=== PATIENT | female | born 1970 | race Caucasian/White ===

== ENCOUNTER 2019-09-30 22:51 | Emergency (ER) | payer OTHER ==
[2019-09-30 23:43] LABS: Basophils # (A) 0.1 k/uL (0-0.2); Basophils % (A) 1 %; Eosinophils # (A) 0.1 k/uL (0-0.7); Eosinophils % (A) 2 %; HCT 39.8 % (34.0-46.0); HGB 13.2 gm/dL (11.4-16.0); Lymphocytes # (A) 3.4 k/uL (1.0-4.8); Lymphocytes % (A) 42 %; MCHC 33.2 g/dL (31.0-37.0); MCV 90.3 fL (80.0-100.0); Mean Platelet Volume 7.5; Monocytes # (A) 0.5 k/uL (0-1.0); Monocytes % (A) 6 %; Neutrophils # (A) 3.7 k/uL (1.3-7.7); Neutrophils % (A) 45 %; Platelet Count 257 k/uL (150-450); RDW 13.6 % (11.5-15.5); WBC 8.2 k/uL (3.8-10.6)
[2019-09-30 23:50] LABS: Appearance,Urine Cloudy (Clear); Bacteria,Urine Rare /hpf; Bilirubin,Urine Negative (Negative); Blood,Urine Moderate (Negative); Color,Urine Yellow; Glucose,Urine (UA) Negative (Negative); Hyaline Casts,Urine 1 /lpf (0-2); Ketones,Urine 1+ (Negative); Leukocyte Esterase,Urine Small (Negative); Mucus,Urine Moderate /hpf; Nitrite,Urine Negative (Negative); PH, Urine 5.5 (5.0-8.0); Protein,Urine Trace (Negative); RBC,Urine 3 /hpf (0-5); Specific Gravity,Urine 1.025 (1.001-1.035); Squamous Epithelial Cell,Urine 6 /hpf (0-4); Urobilinogen,Urine <2.0 mg/dL (<2.0); WBC,Urine 4 /hpf (0-5)
[2019-09-30 23:51] LABS: ALT 23 U/L (4-34); AST 33 U/L (14-36); Acetaminophen <10.0 ug/mL; African American GFR (CKD) 85 (>60 ml/min/1.73 sqM); Albumin 4.2 g/dL (3.5-5.0); Alkaline Phosphatase 53 U/L (38-126); Anion Gap 10 mmol/L; Blood Urea Nitrogen 10 mg/dL (7-17); Calcium 9.2 mg/dL (8.4-10.2); Carbon Dioxide 18 mmol/L (22-30); Chloride 117 mmol/L (98-107); Glucose 105 mg/dL (74-99); Non-African American GFR(CKD) 74 (>60 ml/min/1.73 sqM); Potassium 3.9 mmol/L (3.5-5.1); Salicylate <1.0 mg/dL; Sodium 145 mmol/L (137-145); Total Bilirubin 0.2 mg/dL (0.2-1.3); Total Protein 6.9 g/dL (6.3-8.2)
[2019-09-30 23:58] LABS: Amphetamine Screen,Urine Not Detected (NotDetected); Barbiturate Screen,Urine Not Detected (NotDetected); Benzodiazepines Screen,Urine Not Detected (NotDetected); Cocaine Screen,Urine Detected (NotDetected); Methadone Screen, Urine Not Detected (NotDetected); Opiate Screen,Urine Not Detected (NotDetected); Oxycodone Screen, Urine Not Detected (NotDetected); Phencyclidine Screen,Urine Not Detected (NotDetected); Tricyclic Antidepressant,Urine Detected (NotDetected); Urn Cannabinoid Scrn Not Detected (NotDetected)
[2019-10-01 00:02] LABS: Alcohol 166 mg/dL
--- NOTE | 2019-10-01 00:13 | ED ---
General Adult HPI - General Source: patient, EMS Mode of arrival: ambulatory Limitations: no limitations <Cris Fuentes - Last Filed: 10/02/19 02:28> <Elie West - Last Filed: 10/02/19 13:42> - General Chief complaint: Psychiatric Symptoms Stated complaint: Overdose Time Seen by Provider: 09/30/19 22:58 - History of Present Illness Initial comments: Niya is a pleasantly intoxicated 49-year-old female who is brought to the emergency department today by EMS for evaluation of suicidal thoughts and overdose. Patient states that she has a history of bipolar, she is prescribed Seroquel but ran out a few days ago and has been out of her medications. Patient states today she used cocaine, drink alcohol and then took 200 mg of baclofen in an attempt to harm herself. Patient has a history of self-harm be havior. (Cris Fuentes) - Related Data Allergies Allergy/AdvReac Type Severity Reaction Status Date / Time No Known Allergies Allergy Verified 10/01/19 03:46 Review of Systems ROS Other: All systems not noted in ROS Statement are negative. <Cris Fuentes - Last Filed: 10/02/19 02:28> ROS Other: All systems not noted in ROS Statement are negative. <Elie West - Last Filed: 10/02/19 13:42> ROS Statement: Those systems with pertinent positive or pertinent negative responses have been documented in the HPI. General Exam Limitations: no limitations <Cris Fuentes - Last Filed: 10/02/19 02:28> - General Exam Comments Initial Comments: Physical Exam GENERAL: Patient is well-developed and well-nourished. Patient is nontoxic and well-hydrated and is in no distress. HENT: Normocephalic, Atraumatic. EYES: PERRL, EOMI PULMONARY: Unlabored respirations. CARDIOVASCULAR: RRR Warm and well perfused extremities ABDOMEN: Obese, Non-distended SKIN: No rashes or bruising : Deferred NEUROLOGIC: Alert and oriented Slurred speech MUSCULOSKELETAL: Moving all extremities with no apparent injury PSYCHIATRIC: Depressed, suicidal (Cris Fuentes) Course Vital Signs 09/30/19 10/01/19 10/01/19 23:04 00:30 01:00 Temperature 98.2 F Pulse Rate 95 101 H 101 H Respiratory 18 16 18 Rate Blood Pressure 135/80 134/61 134/61 O2 Sat by Pulse 96 92 L 95 Oximetry 10/01/19 10/01/19 10/01/19 02:10 05:00 06:00 Temperature Pulse Rate 96 89 82 Respiratory 16 18 18 Rate Blood Pressure 168/97 184/111 182/86 O2 Sat by Pulse 96 96 94 L Oximetry 10/01/19 10/01/19 10/01/19 07:50 09:39 09:41 Temperature 97.5 F L Pulse Rate 67 Respiratory 18 Rate Blood Pressure 162/81 O2 Sat by Pulse 96 Oximetry 10/01/19 10/01/19 10/01/19 14:47 15:32 22:33 Temperature 97.5 F L 98.1 F Pulse Rate 91 86 89 Respiratory 18 18 18 Rate Blood Pressure 191/90 154/88 164/89 O2 Sat by Pulse 96 99 99 Oximetry 10/02/19 10/02/19 10/02/19 06:56 08:00 09:00 Temperature 98.3 F Pulse Rate 85 93 Respiratory 17 18 18 Rate Blood Pressure 151/74 140/72 O2 Sat by Pulse 96 96 Oximetry 10/02/19 10/02/19 10/02/19 10:00 11:00 12:00 Temperature Pulse Rate 90 Respiratory 18 18 18 Rate Blood Pressure 132/71 O2 Sat by Pulse 96 Oximetry 10/02/19 12:46 Temperature 98.3 F Pulse Rate 90 Respiratory 18 Rate Blood Pressure 132/71 O2 Sat by Pulse 96 Oximetry EKG Findings - EKG Comments: EKG Findings:: An EKG was obtained due to ingestion, EKG was obtained at 2310, r ate is 99 rhythm is sinus there is a normal axis, normal intervals, AK 1:30, QRS 88, QTC is [address] elevations or depressions no evidence of acute ischemia, infarction or arrhythmia. <Cris Fuentes - Last Filed: 10/02/19 02:28> Medical Decision Making - Lab Data Result diagrams: 09/30/19 23:29 09/30/19 23:29 <Cris Fuentes - Last Filed: 10/02/19 02:28> - Lab Data Result diagrams: 09/30/19 23:29 09/30/19 23:29 <Elie West - Last Filed: 10/02/19 13:42> - Medical Decision Making The patient was seen and evaluated history is obtained from the patient and EMS Patient admitted to cocaine use, alcohol intoxication and intentional overdose of baclofen Patient care was discussed with poison control who recommended monitoring for sedation, possible seizures Patient remained awake alert and oriented through her stay in the emergency department. She would have short periods of sleeping with snoring but would wake She was clinically sober at 2 AM and was evaluated by emergency psychiatric services to petition the patient and recommended inpatient admission. Admission is not available here patient will be transferred to an outpatient psychiatric facility. I completed a psychiatric certification as I do agree the patient is a threat to herself with depression and suicidal plan. Patient previously on Seroquel has been noncompliant for a few days. Dose of Seroquel was ordered here patient was also noted be hypertensive with a high heart rate is a dose of metoprolol was ordered. Patient with some nausea and vomiting was treated with Zofran, she is tolerating oral fluids now. Patient will be transferred to outpatient psychiatric facility, at this time pending placement Regular diet ordered 10/01/2019 23:00 She was reevaluated evening she is pending transfer to psychiatric facility. Patient received Ativan throughout the day today. Her normal evening dose of Seroquel was again ordered. (Cris Fuentes) - Lab Data Lab Results 09/30/19 09/30/19 09/30/19 Range/Units 23:29 23:29 23:29 WBC 8.2 (3.8-10.6) k/uL RBC 4.40 (3.80-5.40) m/uL Hgb 13.2 (11.4-16.0) gm/dL Hct 39.8 (34.0-46.0) % MCV 90.3 (80.0-100.0) fL MCH 30.0 (25.0-35.0) pg MCHC 33.2 (31.0-37.0) g/dL RDW 13.6 (11.5-15.5) % Plt Count 257 (150-450) k/uL Neutrophils % 45 % Lymphocytes % 42 % Monocytes % 6 % Eosinophils % 2 % Basophils % 1 % Neutrophils # 3.7 (1.3-7.7) k/uL Lymphocytes # 3.4 (1.0-4.8) k/uL Monocytes # 0.5 (0-1.0) k/uL Eosinophils # 0.1 (0-0.7) k/uL Basophils # 0.1 (0-0.2) k/uL Sodium (137-145) mmol/L Potassium (3.5-5.1) mmol/L Chloride (98-107) mmol/L Carbon Dioxide (22-30) mmol/L Anion Gap mmol/L BUN (7-17) mg/dL Creatinine (0.52-1.04) mg/dL Est GFR (CKD-EPI)AfAm (>60 ml/min/1.73 sqM) Est GFR (CKD-EPI)NonAf (>60 ml/min/1.73 sqM) Glucose (74-99) mg/dL Calcium (8.4-10.2) mg/dL Magnesium (1.6-2.3) mg/dL Total Bilirubin (0.2-1.3) mg/dL AST (14-36) U/L ALT (4-34) U/L Alkaline Phosphatase (38-126) U/L Total Protein (6.3-8.2) g/dL Albumin (3.5-5.0) g/dL Urine Color Yellow Urine Appearance Cloudy H (Clear) Urine pH 5.5 (5.0-8.0) Ur Specific [place] 1.025 (1.001-1.035) Urine Protein Trace H (Negative) Urine Glucose (UA) Negative (Negative) Urine Ketones 1+ H (Negative) Urine Blood Moderate H (Negative) Urine Nitrite Negative (Negative) Urine Bilirubin Negative (Negative) Urine Urobilinogen <2.0 (<2.0) mg/dL Ur Leukocyte Esterase Small H (Negative) Urine RBC 3 (0-5) /hpf Urine WBC 4 (0-5) /hpf Ur Squamous Epith Cells 6 H (0-4) /hpf Urine Bacteria Rare H (None) /hpf Hyaline Casts 1 (0-2) /lpf Urine Mucus Moderate H (None) /hpf Urine HCG, Qual (Not Detectd) Salicylates mg/dL Urine Opiates Screen Not Detected (NotDetected) Ur Oxycodone Screen Not Detected (NotDetected) Urine Methadone Screen Not Detected (NotDetected) Ur Propoxyphene Screen Not Detected (NotDetected) Acetaminophen ug/mL Ur Barbiturates Screen Not Detected (NotDetected) U Tricyclic Antidepress Detected H (NotDetected) Ur Phencyclidine Scrn Not Detected (NotDetected) Ur Amphetamines Screen Not Detected (NotDetected) U Methamphetamines Scrn Not Detected (NotDetected) U Benzodiazepines Scrn Not Detected (NotDetected) Urine Cocaine Screen Detected H (NotDetected) U Marijuana (THC) Screen Not Detected (NotDetected) Serum Alcohol mg/dL 09/30/19 09/30/19 09/30/19 Range/Units 23:29 23:29 23:30 WBC (3.8-10.6) k/uL RBC (3.80-5.40) m/uL Hgb (11.4-16.0) gm/dL Hct (34.0-46.0) % MCV (80.0-100.0) fL MCH (25.0-35.0) pg MCHC (31.0-37.0) g/dL RDW (11.5-15.5) % Plt Count (150-450) k/uL Neutrophils % % Lymphocytes % % Monocytes % % Eosinophils % % Basophils % % Neutrophils # (1.3-7.7) k/uL Lymphocytes # (1.0-4.8) k/uL Monocytes # (0-1.0) k/uL Eosinophils # (0-0.7) k/uL Basophils # (0-0.2) k/uL Sodium 145 (137-145) mmol/L Potassium 3.9 (3.5-5.1) mmol/L Chloride 117 H (98-107) mmol/L Carbon Dioxide 18 L (22-30) mmol/L Anion Gap 10 mmol/L BUN 10 (7-17) mg/dL Creatinine 0.91 (0.52-1.04) mg/dL Est GFR (CKD-EPI)AfAm 85 (>60 ml/min/1.73 sqM) Est GFR (CKD-EPI)NonAf 74 (>60 ml/min/1.73 sqM) Glucose 105 H (74-99) mg/dL Calcium 9.2 (8.4-10.2) mg/dL Magnesium 1.7 (1.6-2.3) mg/dL Total Bilirubin 0.2 (0.2-1.3) mg/dL AST 33 (14-36) U/L ALT 23 (4-34) U/L Alkaline Phosphatase 53 (38-126) U/L Total Protein 6.9 (6.3-8.2) g/dL Albumin 4.2 (3.5-5.0) g/dL Urine Color Urine Appearance (Clear) Urine pH (5.0-8.0) Ur Specific [place] (1.001-1.035) Urine Protein (Negative) Urine Glucose (UA) (Negative) Urine Ketones (Negative) Urine Blood (Negative) Urine Nitrite (Negative) Urine Bilirubin (Negative) Urine Urobilinogen (<2.0) mg/dL Ur Leukocyte Esterase (Negative) Urine RBC (0-5) /hpf Urine WBC (0-5) /hpf Ur Squamous Epith Cells (0-4) /hpf Urine Bacteria (None) /hpf Hyaline Casts (0-2) /lpf Urine Mucus (None) /hpf Urine HCG, Qual Not Detected (Not Detectd) Salicylates <1.0 mg/dL Urine Opiates Screen (NotDetected) Ur Oxycodone Screen (NotDetected) Urine Methadone Screen (NotDetected) Ur Propoxyphene Screen (NotDetected) Acetaminophen <10.0 ug/mL Ur Barbiturates Screen (NotDetected) U Tricyclic Antidepress (NotDetected) Ur Phencyclidine Scrn (NotDetected) Ur Amphetamines Screen (NotDetected) U Methamphetamines Scrn (NotDetected) U Benzodiazepines Scrn (NotDetected) Urine Cocaine Screen (NotDetected) U Marijuana (THC) Screen (NotDetected) Serum Alcohol 166 mg/dL Disposition Is patient prescribed a controlled substance at d/c from ED?: No <Cris Fuentes - Last Filed: 10/02/19 02:28> <Elie West - Last Filed: 10/02/19 13:42> Clinical Impression: Depression, Suicidal ideation, Attempted suicide, Alcohol intoxication Disposition: TRANSFER TO PSYCH HOSP/UNIT Condition: Stable Referrals: None,Stated [Primary Care Provider] - 1-2 days
[2019-10-01] MEDS ORDERED: LORazepam 1 MG TAB PO STA ×4 (03:46→21:26)
[2019-10-01] MEDS ORDERED: METOPROLOL TARTRATE 25 MG TAB PO STA ×2 (04:42→14:47)
[2019-10-01] MEDS ORDERED: ONDANSETRON 4 MG/2 ML VIAL IM STA ×2 (04:56→07:49)
[2019-10-01] MEDS ORDERED: QUEtiapine 100 MG TAB PO ONE ×2 (05:00→23:00)
[2019-10-01] MEDS ORDERED: QUEtiapine 100 MG TAB PO STA (22:34)
[2019-10-02] MEDS ORDERED: LORazepam 1 MG TAB PO PRN (08:03)
[2019-10-02] MEDS ORDERED: ACETAMINOPHEN TAB 325 MG TAB PO PRN (08:03)
[2019-10-02] MEDS ORDERED: QUEtiapine 100 MG TAB PO SCH (09:00)
[2019-10-02 09:15] VITALS: RESP 18
[2019-10-02 09:17] VITALS: TEMP 98.3
[2019-10-02 14:10] VITALS: BP 138/77; PULSE 83
== END 2019-10-02 14:31 ==
LOC: EC 22:51
DX: R45.851 Suicidal ideations (principal); F32.9 Major depressive disorder, single episode, unspecified; T40.5X2A Poisoning by cocaine, intentional self-harm, initial encounter; T42.8X2A Poisoning by antiparkinsonism drugs and other central muscle-tone depressants, intentional self-harm, initial encounter; F10.129 Alcohol abuse with intoxication, unspecified; I10 Essential (primary) hypertension; Y90.9 Presence of alcohol in blood, level not specified
CPT/HCPCS: 99285; 96372 ×2; 82075; 36415; 93005; 80053; 83735; 85025; 81001; 81025; 80306; 83520; G0480 ×2; J2405; 80320; 80329

== ENCOUNTER 2021-07-23 00:37 | Emergency (ER) | payer OTHER ==
--- NOTE | 2021-07-23 01:34 | XR ---
EXAMINATION TYPE: XR ribs RT DATE OF EXAM: 07/23/2021 COMPARISON: NONE HISTORY: Right side pain TECHNIQUE: 4 views FINDINGS: There is no sign pneumothorax. Right lung is clear of infiltrate. There is fractures of the lateral right seventh and eighth and ninth ribs. There is minimal pleural reaction at the right lung base. IMPRESSION: Multiple lateral rib fractures appear acute. Pleural reaction. No pneumothorax.
--- NOTE | 2021-07-23 03:08 | ED ---
Lower Extremity Injury HPI - General Chief Complaint: Recheck/Abnormal Lab/Rx Stated Complaint: Rib Pain Time Seen by Provider: 07/23/21 02:38 Source: patient, RN notes reviewed, old records reviewed Mode of arrival: ambulatory Limitations: no limitations - History of Present Illness Initial Comments: This is a 51-year-old female to the emergency department for evaluation patient coming in for evaluation of a fall she is about 2-3 days out of this fall pain when she takes a deep breath pain when she moves severe. Patient has significant cough was also exaggerates pain but no significant shortness of breath MD Complaint: fall -: days(s) Type of Injury: blunt Place: home Severity: moderate Severity scale (1-10): 7 Improves With: nothing Worsens With: nothing Context: fall, direct blow Other Symptoms: chest pain Treatments Prior to Arrival: NSAIDS - Related Data Previous Rx's Medication Instructions Recorded HYDROcodone/APAP 10-325MG [[place] 1 tab PO Q4H PRN 3 Days #18 tab 07/27/21 10-325] Allergies Allergy/AdvReac Type Severity Reaction Status Date / Time latex Allergy Anaphylaxis Verified 07/27/21 20:40 Review of Systems ROS Statement: Those systems with pertinent positive or pertinent negative responses have been documented in the HPI. ROS Other: All systems not noted in ROS Statement are negative. Past Medical History Past Medical History: Asthma, Diabetes Mellitus, Hypertension, Thyroid Disorder Additional Past Medical History / Comment(s): breast cancer History of Any Multi-Drug Resistant Organisms: None Reported Past Surgical History: Hysterectomy Past Psychological History: Bipolar Smoking Status: Current every day smoker Past Alcohol Use History: Occasional Past Drug Use History: None Reported General Exam Limitations: no limitations General appearance: alert, in no apparent distress Head exam: Present: atraumatic, normocephalic, normal inspection Eye exam: Present: normal appearance, PERRL, EOMI. Absent: scleral icterus, conjunctival injection, periorbital swelling ENT exam: Present: normal exam, mucous membranes moist Neck exam: Present: normal inspection. Absent: tenderness, meningismus, lymphadenopathy Respiratory exam: Present: normal lung sounds bilaterally. Absent: respiratory distress, wheezes, rales, rhonchi, stridor Cardiovascular Exam: Present: regular rate, normal rhythm, normal heart sounds. Absent: systolic murmur, diastolic murmur, rubs, gallop, clicks GI/Abdominal exam: Present: soft, normal bowel sounds. Absent: distended, tenderness, guarding, rebound, rigid Extremities exam: Present: normal inspection, full ROM, normal capillary refill. Absent: tenderness, pedal edema, joint swelling, calf tenderness Back exam: Present: normal inspection Neurological exam: Present: alert, oriented X3, CN II-XII intact Psychiatric exam: Present: normal affect, normal mood Skin exam: Present: warm, dry, intact, normal color. Absent: rash Course Vital Signs 07/23/21 07/23/21 00:41 03:20 Temperature 98.3 F 98.1 F Pulse Rate 103 H 90 Respiratory 20 18 Rate Blood Pressure 162/87 149/99 O2 Sat by Pulse 95 94 L Oximetry - Reevaluation(s) Reevaluation #1: 07/23/21 Medical records reviewed Reevaluation #2: 07/23/21 Patient informed results and questions are answered Reevaluation #3: 07/23/21 Patient has pain control Medical Decision Making - Medical Decision Making 51 female to the emergency department for evaluation. Patient presents today for evaluation of chest wall pain after fall positive or fractures. Otherwise no injury patient can be discharged home - Radiology Data Radiology results: report reviewed (X-ray of chest Positive for fractures of the right ribs), image reviewed Disposition Clinical Impression: Right rib fracture, Fall Disposition: HOME SELF-CARE Condition: Good Instructions (If sedation given, give patient instructions): Rib Fracture (ED) Is patient prescribed a controlled substance at d/c from ED?: No Referrals: Nonstaff,Physician [Primary Care Provider] - 1-2 days
[2021-07-23] MEDS ORDERED: MORPHINE SULFATE 4 MG/ML SYRINGE IM STA (03:11)
[2021-07-23] MEDS ORDERED: traMADol 50 MG STARTER PACK 3 TAB BTL PO STA (03:11)
[2021-07-23] MEDS ORDERED: ACET/COD 300 MG/30 MG STARTER PACK 6 TAB BTL PO STA (03:11)
[2021-07-23] MEDS ORDERED: Acetaminophen-Codeine 300-30mg TAB PO STA (03:11)
[2021-07-23 03:21] VITALS: BP 149/99; PULSE 90; RESP 18; TEMP 98.1
== END 2021-07-23 03:27 | disposition home or self-care (01) ==
LOC: EC 00:37
DX: S22.31XA Fracture of one rib, right side, initial encounter for closed fracture (principal); J45.909 Unspecified asthma, uncomplicated; E11.9 Type 2 diabetes mellitus without complications; I10 Essential (primary) hypertension; F17.200 Nicotine dependence, unspecified, uncomplicated; Z91.040 Latex allergy status; W19.XXXA Unspecified fall, initial encounter
CPT/HCPCS: 71100; 99284; 96372; J2270

== ENCOUNTER 2021-07-27 11:56 | Emergency (ER) | payer OTHER ==
[2021-07-27 12:01] VITALS: BP 161/87; PULSE 108; RESP 20; TEMP 97.8
[2021-07-27] MEDS ORDERED: HYDROmorphone 0.5 MG/0.5 ML SYRINGE IM STA (12:17)
--- NOTE | 2021-07-27 12:46 | XR ---
EXAMINATION TYPE: XR chest 2V DATE OF EXAM: 07/27/2021 12:29 PM COMPARISON: Chest radiographs from 07/23/2021 TECHNIQUE: XR chest 2V Frontal and lateral views of the chest. CLINICAL INDICATION:Female, 51 years old with history of multiple rib fractures, increased pain + SOB ; FINDINGS: Lungs/Pleura: Blunting of the right costophrenic angle. Flattening of the diaphragms increased lucenc y of the lungs. No evidence of focal consolidation or pneumothorax. Pulmonary vascularity: Unremarkable. Heart/mediastinum: Cardiomediastinal silhouette is unremarkable. Musculoskeletal: No acute osseous pathology. Rib fractures of ribs right 7 through 9 as seen on prior radiograph. IMPRESSION: COPD changes with suspected right pleural effusion.
[2021-07-27] MEDS ORDERED: HYDROmorphone 1 MG/ML 1 ML SYRINGE IM STA (13:06)
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
== END 2021-07-27 13:23 | disposition home or self-care (01) ==
LOC: EC 11:56
DX: S22.31XA Fracture of one rib, right side, initial encounter for closed fracture (principal); J90 Pleural effusion, not elsewhere classified; J45.909 Unspecified asthma, uncomplicated; F17.200 Nicotine dependence, unspecified, uncomplicated; E11.9 Type 2 diabetes mellitus without complications; I10 Essential (primary) hypertension; Z91.040 Latex allergy status; W19.XXXA Unspecified fall, initial encounter
CPT/HCPCS: 71046; 99283; 96372; J1170 ×2

== ENCOUNTER 2021-07-27 20:39 | Emergency (ER) | payer OTHER ==
[2021-07-27] MEDS ORDERED: HYDROmorphone 1 MG/ML 1 ML SYRINGE IVP STA (21:39)
[2021-07-27] MEDS ORDERED: HYDROmorphone 1 MG/ML 1 ML SYRINGE IM STA (21:44)
[2021-07-27] MEDS ORDERED: ACET/COD 300 MG/30 MG STARTER PACK 6 TAB BTL PO STA (21:45)
--- NOTE | 2021-07-27 21:47 | ED ---
General Adult HPI - General Chief complaint: Recheck/Abnormal Lab/Rx Stated complaint: rib pain Time Seen by Provider: 07/27/21 21:06 Source: patient, EMS Mode of arrival: EMS Limitations: no limitations - History of Present Illness Initial comments: Patient is a 51-year-old female who presents for management of right rib pain. Patient was evaluated in the emergency department early this morning by me personally. Patient has 3 fractured ribs and a small pleural effusion. Patient was discharged with [place] and spirometer however states her pharmacy was closed so she is unable to chart picker the [place]. Patient presents for pain management. Denies any new symptoms. - Related Data Previous Rx's Medication Instructions Recorded HYDROcodone/APAP 10-325MG [[place] 1 tab PO Q4H PRN 3 Days #18 tab 07/27/21 10-325] Allergies Allergy/AdvReac Type Severity Reaction Status Date / Time latex Allergy Anaphylaxis Verified 07/27/21 20:40 Review of Systems ROS Statement: Those systems with pertinent positive or pertinent negative responses have been documented in the HPI. ROS Other: All systems not noted in ROS Statement are negative. Past Medical History Past Medical History: Asthma, Diabetes Mellitus, Hypertension, Thyroid Disorder Additional Past Medical History / Comment(s): breast cancer History of Any Multi-Drug Resistant Organisms: None Reported Past Surgical History: Hysterectomy Past Psychological History: Bipolar Smoking Status: Current every day smoker Past Alcohol Use History: Occasional Past Drug Use History: None Reported General Exam Limitations: no limitations Course Vital Signs 07/27/21 07/27/21 20:41 23:14 Temperature 98.3 F 98.2 F Pulse Rate 101 H 89 Respiratory 20 16 Rate Blood Pressure 189/126 186/92 O2 Sat by Pulse 98 98 Oximetry Medical Decision Making - Medical Decision Making This is a 51-year-old female who presents for pain management after recent fracture and small pleural effusion diagnosis. Thorough history and examination were performed. Pain controlled with Dilaudid. Patient reports of [place] from the pharmacy in the morning as planned. She is to follow-up with her primary care provider in one to 2 days. Return parameters discussed. Patient verbalizes understanding and is agreeable to this plan. Dr. West is my attending. Disposition Clinical Impression: Right rib fracture, Pleural effusion, Pain aggravated by coughing and deep breathing Disposition: HOME SELF-CARE Condition: Good Instructions (If sedation given, give patient instructions): Rib Fracture (ED), Pleural Effusion (DC) Additional Instructions: Please take medication as directed. Do not take Tylenol 3 and 4 hours from now which is at 2 AM. When you chart picker the [place] from a pharmacy in the morning is important to not take norco and Tylenol 3 together. Please choose one to take for pain. You may take one of these in combination with anti-inflammatory such as Motrin. Follow-up with primary care provider in one to 2 days. Return to the emergency department if you experience new, concerning, or worsening symptoms. Is patient prescribed a controlled substance at d/c from ED?: No Referrals: Nonstaff,Physician [Primary Care Provider] - 1-2 days
[2021-07-27 23:14] VITALS: BP 186/92; PULSE 89; RESP 16; TEMP 98.2
== END 2021-07-27 23:13 | disposition home or self-care (01) ==
LOC: EC 20:39
DX: S22.31XA Fracture of one rib, right side, initial encounter for closed fracture (principal); J90 Pleural effusion, not elsewhere classified; E11.9 Type 2 diabetes mellitus without complications; I10 Essential (primary) hypertension; J45.909 Unspecified asthma, uncomplicated; F17.200 Nicotine dependence, unspecified, uncomplicated; X58.XXXA Exposure to other specified factors, initial encounter
CPT/HCPCS: 99283; 96374; J1170